=== PATIENT | female | born 1950 | race African-American/Black ===

== ENCOUNTER → 2019-02-17 | Outpatient (CLI) | payer OTHER ==
[~2019-02-17] MED LIST: ACIDOPHILUS LA1 EACH PO; ANTACID650 MG PO; BIOTIN2500 MCG PO; BIOTIN5 MG PO; CALCITRIOL0.25 MCG PO; CALCITRIOL0.5 MCG PO; CENTRUM SILVER1 EAC4 PO; CIPROFLOXACIN500 M1 PO; CLARITIN10 MG PO; FLOMAX0.4 MG PO; GAS RELIEF125 MG; HYDROCODONE-AP1 EAC6 PO; KLOR-CON 1010 MEQ PO; KLOR-CON-EF 2525 ME1 PO; LACTINEX CHEWA1 EACH PO; MAG DELAY64 MG PO; MAG-OXIDE400 MG PO; MAGOX 400400 MG PO; MULTIVITAMINS1 EAC7 PO; ONDANSETRON HCL4 M2; PROTONIX 20 MG20 M1; REGLAN 10 MG TA10 MG; REGLAN 10 MG TA10 MG PO; SODIUM BICARBO650 M3 PO; SODIUM CHLORIDE1 G2 PO; TYLENOL325 MG PO; VENOFER20 MG/ML IV
[2019-02-17 13:10] VITALS: BP 118/71
[2019-02-17 15:00] VITALS: BP 123/63
--- NOTE | 2019-02-17 15:18 | NUR ---
IN FOR 1ST OF 2 INJECTAFER INFUSIONS. ADMISSION HISTORY AND ASSESSMENT COMPLETED. MEDICATIONS AND ALLERGIES RECONCILED. IV STARTED IN RIGHT WRIST. TOLERATED INFUSION WITHOUT INCIDENT. POST VITAL SIGNS GOOD. OBSERVED FOR 30 MINUTES AND THEN DISMISSED IN STABLE CONDITION.
== END ==
LOC: OPONC 09:09
DX: N18.5 Chronic kidney disease, stage 5 (principal); D63.1 Anemia in chronic kidney disease
CPT/HCPCS: 95000

== ENCOUNTER → 2019-02-25 | Outpatient (CLI) | payer OTHER ==
[2019-02-25 14:39] VITALS: BP 134/84
[2019-02-25 15:20] VITALS: BP 117/71
[2019-02-25 15:31] VITALS: BP 117/71
[2019-02-25 15:36] VITALS: BP 117/71
--- NOTE | 2019-02-25 16:08 | NUR ---
IN FOR 2ND INJECTAFER INFUSION. STATED FEELING WELL AND BETTER WITH MORE ENERGY. NO SIDE EFFECTS NOTED FROM 1ST DOSE. 2ND DOSE GIVEN TODAY AND TOLERATED WELL WITHOUT INCIDENT. OBSERVED FOR 30 MINUTES. POST VITAL SIGNS GOOD. DISMISSED IN STABLE CONDITION.
== END ==
LOC: OPONC 08:40
DX: N18.5 Chronic kidney disease, stage 5 (principal); D63.1 Anemia in chronic kidney disease; D50.9 Iron deficiency anemia, unspecified
CPT/HCPCS: 95000

== ENCOUNTER → 2021-03-01 | Outpatient (CLI) | payer OTHER, MEDICARE | LOC: ULTRA 09:30 | PROVIDERS: ATTEND Nurse Practitioner | DX: R60.0 Localized edema (principal); M25.562 Pain in left knee ==